=== PATIENT | female | born 1990 | race Caucasian/White ===

== ENCOUNTER → 2019-03-15 08:56 | Outpatient (BNVA) | payer OTHER, SELFPAY | PROVIDERS: Family Provider Family Medicine; PCP Family Medicine; Visit Provider Orthopaedic Surgery | DX: S93.432A Sprain of tibiofibular ligament of left ankle, initial encounter (principal); X58.XXXA Exposure to other specified factors, initial encounter | CPT/HCPCS: 73610 ==

== ENCOUNTER 2019-04-06 06:00 | Outpatient (RCR) | payer OTHER, SELFPAY | END 2019-04-07 23:59 | disposition home or self-care (01) | LOC: SPT 06:00 | PROVIDERS: Family Provider Family Medicine; PCP Family Medicine; Referring Provider Orthopaedic Surgery; Visit Provider Orthopaedic Surgery | DX: Z47.89 Encounter for other orthopedic aftercare (principal) | CPT/HCPCS: 97110; 97161 ==

== ENCOUNTER 2019-04-08 06:00 | Outpatient (RCR) | payer OTHER, SELFPAY | END 2019-05-06 23:59 | disposition home or self-care (01) | LOC: SPT 06:00 | PROVIDERS: Family Provider Family Medicine; PCP Family Medicine; Referring Provider Orthopaedic Surgery; Visit Provider Orthopaedic Surgery | DX: Z76.89 Persons encountering health services in other specified circumstances (principal) ==

== ENCOUNTER 2019-04-08 06:00 | Outpatient (RCR) | payer OTHER, SELFPAY | END 2019-05-06 23:59 | disposition home or self-care (01) | LOC: SPT 06:00 | PROVIDERS: Family Provider Family Medicine; PCP Family Medicine; Referring Provider Orthopaedic Surgery; Visit Provider Orthopaedic Surgery | DX: Z47.89 Encounter for other orthopedic aftercare (principal) | CPT/HCPCS: 97110; 97140 ==

== ENCOUNTER → 2019-04-12 16:06 | Outpatient (BNVA) | payer OTHER, SELFPAY | PROVIDERS: Family Provider Family Medicine; PCP Family Medicine; Visit Provider Orthopaedic Surgery | DX: S93.432A Sprain of tibiofibular ligament of left ankle, initial encounter (principal); X58.XXXA Exposure to other specified factors, initial encounter; Z98.890 Other specified postprocedural states | CPT/HCPCS: 73610 ==

== ENCOUNTER 2019-05-24 07:23 | Outpatient (CLI) | payer OTHER, SELFPAY ==
--- NOTE | 2019-05-24 07:56 | XR_ITS ---
WS: [id number] XR ankle LT min 3V* [id number] REASON FOR EXAM: ORIF FINDINGS: Periosteal reaction is seen along the distal diaphysis of the tibia. There is evidence of p late seen overriding this area. No definite abnormality suggesting fractures are seen at this time. The ankle mortise is normal. The tibia-fibula talus were normal. The posterior shelf of the tibia is normal. XR/XR ankle LT min 3V* [id number] IMPRESSION: Healed fracture of the tibia periosteal reaction present.
== END 2019-05-24 07:24 | disposition home or self-care (01) ==
PROVIDERS: Family Provider Family Medicine; PCP Family Medicine; Visit Provider Orthopaedic Surgery
DX: Z98.890 Other specified postprocedural states (principal); Z87.81 Personal history of (healed) traumatic fracture
CPT/HCPCS: 73610

== ENCOUNTER → 2020-03-06 12:00 | Outpatient (BNVA) | payer OTHER, SELFPAY | PROVIDERS: Family Provider Family Medicine; PCP Family Medicine; Visit Provider Nurse Practitioner Family | DX: Z20.828 Contact with and (suspected) exposure to other viral communicable diseases (principal) | CPT/HCPCS: 87426 ==

== ENCOUNTER → 2021-03-27 09:17 | Outpatient (BNVA) | payer OTHER, SELFPAY | PROVIDERS: Family Provider Family Medicine; PCP Family Medicine; Visit Provider Nurse Practitioner Family | DX: Z20.822 Contact with and (suspected) exposure to COVID-19 (principal); J98.9 Respiratory disorder, unspecified; R50.9 Fever, unspecified | CPT/HCPCS: 87635 ==

== ENCOUNTER → 2021-10-14 10:10 | Outpatient (BNVA) | payer OTHER, SELFPAY | PROVIDERS: Family Provider Family Medicine; PCP Family Medicine; Visit Provider Obstetrics & Gynecology | DX: Z12.4 Encounter for screening for malignant neoplasm of cervix (principal); Z01.419 Encounter for gynecological examination (general) (routine) without abnormal findings | CPT/HCPCS: 87624 ==

== ENCOUNTER 2022-02-09 14:59 | Outpatient (CLI) | payer OTHER, SELFPAY ==
[2022-02-10 16:49] LABS: Thyroid Peroxidase Antobodies 1 IU/mL (<9)
== END 2022-02-09 15:00 | disposition home or self-care (01) ==
PROVIDERS: PCP Family Medicine; Visit Provider Family Medicine
DX: E03.9 Hypothyroidism, unspecified (principal)
CPT/HCPCS: 86376

== ENCOUNTER 2022-05-12 18:01 | Outpatient (CLI) | payer OTHER, SELFPAY ==
--- NOTE | 2022-05-12 18:14 | CTR_ITS ---
PROCEDURE INFORMATION: Exam: CT Neck With Contrast Exam date and time: 05/12/2022 6:19 PM Age: 32 years old Clinical indication: Dysphagia / difficulty swallowing and mass, lump, or swelling in neck; Anterior; Patient HX: Sudden onset of dysphagia with swelling of neck. TECHNIQUE: Imaging protocol: Computed tomography of the neck with contrast. Radiation optimization: All CT scans at this facility use at least one of these dose optimization techniques: automated exposure control; mA and/or kV adjustment per patient size (includes targeted exams where dose is matched to clinical indication); or iterative reconstruction. Contrast material: OMNI 350; Contrast volume: 100 ml; Contrast route: INTRAVENOUS (IV); REPORTING DATA: Count of CT and Cardiac NM exams in prior 12 months: This patient has received 0 known CTs and 0 known cardiac nuclear medicine studies in the 12 months prior to the current study. COMPARISON: No relevant prior studies available. RADIATION DOSE METRICS: Total DLP (mGy-cm): 285.48 FINDINGS: Paranasal sinuses: Scattered paranasal sinus mucosal thickening, without air-fluid level present. Dental: Dental disease. Pharynx: Unremarkable. No significant tonsillar enlargement. Larynx: Unremarkable. Epiglottis is normal. Prevertebral and retropharyngeal spaces: Unremarkable. Salivary glands: Normal. Glands are normal in size. Thyroid: Normal. No enlarged or calcified nodules. Lymph nodes: Deep to the palpable marker in right level 1 there is a 7 mm short axis lymph node present which is not pathologically enlarged. No suspicious lymphadenopathy. Trachea: Visualized trachea is unremarkable. Lungs: Unremarkable as visualized. Bones/joints: Unremarkable. No acute fracture. 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 Intracranially it is not well visualized and may be chronically occluded or congenitally hypoplastic. Soft tissues: Unremarkable. No significant soft tissue swelling. CT/CT neck w con* [id number] IMPRESSION: In right level 1 deep to the palpable marker there is a nonenlarged 7 mm lymph node present at the site of the palpable abnormality. Most likely this is a reactive node. No suspicious findings on CT.
[2022-05-12] MEDS: iohexol 350 mg/mL 500 mL Btl (per mL) IV (18:21)
== END 2022-05-12 18:02 | disposition home or self-care (01) ==
PROVIDERS: PCP Family Medicine; Visit Provider Family Medicine
DX: R13.10 Dysphagia, unspecified (principal); R59.0 Localized enlarged lymph nodes
CPT/HCPCS: 70491; Q9967

== ENCOUNTER 2022-07-30 08:46 | Outpatient (CLI) | payer OTHER, SELFPAY ==
--- NOTE | 2022-07-30 09:04 | US_ITS ---
WS: [id number] INDICATION: Lump LEFT mid back TECHNIQUE: Ultrasound soft tissue of concern FINDINGS: Ultrasound soft tissue area of concern. Echogenic nodule in the area of concern most compat ible with incidental lipoma. No other suspicious abnormalities. US/US soft tissue/extremity [id number] IMPRESSION: Echogenic nodule in the area of concern most compatible with incide ntal lipoma. Lipoma measures 3.2 x 1.1 x 2.3 cm
== END 2022-07-30 08:47 | disposition home or self-care (01) ==
LOC: RAD 08:47
PROVIDERS: PCP Family Medicine; Visit Provider Dermatology
DX: M79.89 Other specified soft tissue disorders (principal); D17.0 Benign lipomatous neoplasm of skin and subcutaneous tissue of head, face and neck
CPT/HCPCS: 76882

== ENCOUNTER → 2023-09-14 10:48 | Outpatient (BNVA) | payer OTHER, SELFPAY | PROVIDERS: PCP Family Medicine; Visit Provider Internal Medicine | DX: E03.9 Hypothyroidism, unspecified (principal) | CPT/HCPCS: 36415; 84439; 84443; 86800 ==

== ENCOUNTER → 2024-01-24 14:10 | Outpatient (BNVA) | payer OTHER, SELFPAY | PROVIDERS: PCP Family Medicine; Visit Provider Nurse Practitioner | DX: R39.9 Unspecified symptoms and signs involving the genitourinary system (principal); N30.00 Acute cystitis without hematuria | CPT/HCPCS: 81000 ==

== ENCOUNTER 2024-03-27 15:05 | Outpatient (CLI) | payer OTHER, SELFPAY ==
[2024-03-27 16:04] LABS: Free T4 Free Thyroxine 1.09 ng/dL (0.82-1.77); Thyroid Stimulating Hormone 0.74 uIU/mL (0.27-4.20)
== END 2024-03-27 15:06 | disposition home or self-care (01) ==
LOC: LAB 15:08
PROVIDERS: PCP Family Medicine; Visit Provider Internal Medicine
DX: E03.9 Hypothyroidism, unspecified (principal)
CPT/HCPCS: 36415; 84439; 84443; 86800

== ENCOUNTER 2024-11-13 13:23 | Outpatient (CLI) | payer OTHER, SELFPAY ==
[2024-11-13 14:22] LABS: Free T4 Free Thyroxine 0.88 ng/dL (0.82-1.77); Thyroid Stimulating Hormone 1.12 uIU/mL (0.27-4.20)
== END 2024-11-13 13:24 | disposition home or self-care (01) ==
LOC: LAB 13:24
PROVIDERS: PCP Family Medicine; Visit Provider Internal Medicine
DX: E03.9 Hypothyroidism, unspecified (principal)
CPT/HCPCS: 36415; 84439; 84443; 84480

== ENCOUNTER 2024-11-14 13:49 | Outpatient (CLI) | payer OTHER, SELFPAY ==
[2024-11-14 14:58] LABS: Estmated Average Glucose 100; Hemoglobin A1C 5.1 % (4.0-6.0)
== END 2024-11-14 13:50 | disposition home or self-care (01) ==
LOC: LAB 13:51
PROVIDERS: PCP Family Medicine; Visit Provider Internal Medicine
DX: E66.9 Obesity, unspecified (principal); Z13.1 Encounter for screening for diabetes mellitus; Z83.3 Family history of diabetes mellitus
CPT/HCPCS: 36415; 83036